=== PATIENT | male | born 1970 | race Hispanic/Latino ===

== ENCOUNTER 2019-03-28 07:54 | Emergency (ER) | payer BC ==
[2019-03-28] MEDS ORDERED: ASPIRIN PO ONE (08:01)
--- NOTE | 2019-03-28 08:43 | XRay Report ---
CHEST 1 VIEW 0825 INDICATION / CLINICAL INFORMATION: Chest Pain. COMPARISON: None available. FINDINGS: SUPPORT DEVICES: None HEART / MEDIASTINUM: No significant abnormality. LUNGS / PLEURA: No significant pulmonary or pleural abnormality. No pneumothorax. ADDITIONAL FINDINGS: No significant additional findings. IMPRESSION: No significant acute abnormality Signer Name: Alok Parsons MD Signed: 03/28/2019 8:38 AM Workstation Name: [id number]
[2019-03-28 08:52] LABS: Basophils % (Auto) 0.3 % (0.0-1.8); Eosinophils # (Auto) 0.2 K/mm3 (0.0-0.4); Hematocrit 45.4 % (35.5-45.6); Hemoglobin 15.3 gm/dl (11.8-15.2); Lymphocytes # (Auto) 1.3 K/mm3 (1.2-5.4); Lymphocytes % (Auto) 15.5 % (13.4-35.0); Mean Corpuscular HGB Conc 34 % (32-34); Mean Corpuscular Volume 88 fl (84-94); Monocytes # (Auto) 0.7 K/mm3 (0.0-0.8); Monocytes % (Auto) 8.6 % (0.0-7.3); Platelet Count 240 K/mm3 (140-440); Red Blood Count 5.16 M/mm3 (3.65-5.03)
[2019-03-28 09:23] LABS: BUN/Creatinine Ratio 20; Blood Urea Nitrogen 16 mg/dL (9-20); Calcium 9.1 mg/dL (8.4-10.2); Hemolysis Index 13
[2019-03-28 09:29] LABS: Alanine Aminotransferase 17 units/L (7-56); Albumin 4.2 g/dL (3.9-5)
[2019-03-28 09:31] LABS: Bilirubin,Direct < 0.2 mg/dL (0-0.2)
[2019-03-28 09:35] LABS: Free T4 (Free Thyroxine) 1.2 ng/dL (0.76-1.46)
[2019-03-28 09:47] LABS: INR 1.03 (0.87-1.13)
[2019-03-28 09:48] LABS: Partial Thromboplastin Time 25.8 Sec. (24.2-36.6)
--- NOTE | 2019-03-28 10:41 | Emergency Department Report ---
ED Palpitations HPI - General Chief Complaint: Arrhythmia/Palpitations Stated Complaint: RAPID HEART BEAT/DEHYDRATED Time Seen by Provider: 03/28/19 08:42 Source: patient Mode of arrival: Ambulatory Limitations: No Limitations - History of Present Illness Initial Comments: 1-year-old male noted that he had an irregular heart rhythm today. This persisted for about one hour. He decided to come to the emergency department for evaluation. While he is waiting he experienced spontaneous cardioversion of atrial fibrillation. He denied shortness of breath or chest pain. He did admit to 3 "vodkas last night". He states he has not had thing like this before. 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 He states that he would prefer to be discharged if at all possible for follow-up in his home town. Complaint: palpitations -: Gradual, hour(s) Context: occured during rest Arrythmia History: other (none) Associated Symptoms: denies other symptoms - Related Data Allergies Allergy/AdvReac Type Severity Reaction Status Date / Time No Known Allergies Allergy Verified 03/28/19 08:01 ED Review of Systems ROS: Stated complaint: RAPID HEART BEAT/DEHYDRATED Other details as noted in HPI Constitutional: denies: chills, fever Eyes: denies: eye pain, eye discharge, vision change ENT: denies: ear pain, throat pain Respiratory: denies: cough, shortness of breath, wheezing Cardiovascular: palpitations. denies: chest pain Endocrine: no symptoms reported Gastrointestinal: denies: abdominal pain, nausea, diarrhea Genitourinary: denies: urgency, dysuria Musculoskeletal: denies: back pain, joint swelling, arthralgia Skin: denies: rash, lesions Neurological: denies: headache, weakness, paresthesias Psychiatric: denies: anxiety, depression Hematological/Lymphatic: denies: easy bleeding, easy bruising ED Past Medical Hx - Past Medical History Previous Medical History?: No - Surgical History Past Surgical History?: No - Social History Smoking Status: Never Smoker Substance Use Type: None ED Physical Exam - General Limitations: No Limitations General appearance: alert, in no apparent distress - Head Head exam: Present: atraumatic, normocephalic - Eye Eye exam: Present: normal appearance. Absent: scleral icterus - ENT ENT exam: Present: mucous membranes moist - Neck Neck exam: Present: normal inspection - Respiratory Respiratory exam: Present: normal lung sounds bilaterally. Absent: respiratory distress - Cardiovascular Cardiovascular Exam: Present: regular rate, normal rhythm. Absent: systolic murmur, diastolic murmur, rubs, gallop - GI/Abdominal GI/Abdominal exam: Present: soft, normal bowel sounds. Absent: distended, tenderness, guarding, rebound - Rectal Rectal exam: Present: deferred - Extremities Exam Extremities exam: Present: normal inspection - Back Exam Back exam: Present: normal inspection - Neurological Exam Neurological exam: Present: alert, oriented X3, CN II-XII intact. Absent: motor sensory deficit - Psychiatric Psychiatric exam: Present: normal affect, normal mood - Skin Skin exam: Present: warm, dry, intact, normal color. Absent: rash ED Course Vital Signs 03/28/19 03/28/19 03/28/19 07:59 08:08 08:34 Temperature 98 F Pulse Rate 18 L 87 Respiratory 18 18 16 Rate Blood Pressure 129/91 Blood Pressure 129/91 [Left] O2 Sat by Pulse 100 Oximetry 03/28/19 03/28/19 03/28/19 08:46 09:00 09:15 Temperature Pulse Rate 90 82 88 Respiratory 19 18 12 Rate Blood Pressure 129/87 126/80 125/77 Blood Pressure [Left] O2 Sat by Pulse 97 97 97 Oximetry 03/28/19 03/28/19 03/28/19 09:30 09:45 10:00 Temperature Pulse Rate 86 79 79 Respiratory 22 13 14 Rate Blood Pressure 119/79 127/78 124/79 Blood Pressure [Left] O2 Sat by Pulse 96 97 97 Oximetry 03/28/19 03/28/19 03/28/19 10:15 10:30 10:45 Temperature Pulse Rate 80 92 H 84 Respiratory 16 18 13 Rate Blood Pressure 122/76 124/80 133/80 Blood Pressure [Left] O2 Sat by Pulse 97 98 98 Oximetry 03/28/19 03/28/19 03/28/19 11:00 11:15 11:30 Temperature Pulse Rate 85 81 79 Respiratory 15 15 19 Rate Blood Pressure 130/77 123/78 125/77 Blood Pressure [Left] O2 Sat by Pulse 97 99 97 Oximetry 03/28/19 11:45 Temperature Pulse Rate 82 Respiratory 17 Rate Blood Pressure 137/80 Blood Pressure [Left] O2 Sat by Pulse 96 Oximetry - Reevaluation(s) Reevaluation #1: Patient remains in normal sinus rhythm. He states he has a friend who is a national recruiter in [place]. He states he will see him at his earliest opportunity. He is not interested in admission or further workup at this time. He is asymptomatic. I have explained to him that he will need anticoagulants if atrial fibrillation persists as well as further workup in either case. He is going to follow-up at home in [place]. He understands alcohol restriction and will restart his aspirin which she stopped taking for the last 2 weeks. 03/28/19 11:57 ED Medical Decision Making - Lab Data Result diagrams: 03/28/19 08:31 03/28/19 08:31 Laboratory Results - last 24 hr 03/28/19 03/28/19 03/28/19 08:31 08:31 08:52 WBC 8.1 RBC 5.16 H Hgb 15.3 H Hct 45.4 MCV 88 MCH 30 MCHC 34 RDW 14.0 Plt Count 240 Lymph % (Auto) 15.5 [place] % (Auto) 8.6 H Eos % (Auto) 2.0 Baso % (Auto) 0.3 Lymph # 1.3 [place] # 0.7 Eos # 0.2 Baso # 0.0 Seg Neutrophils % 73.6 H Seg Neutrophils # 5.9 PT 13.2 INR 1.03 APTT 25.8 Sodium 145 Potassium 3.9 Chloride 105.3 Carbon Dioxide 26 Anion Gap 18 BUN 16 Creatinine 0.8 Estimated GFR > 60 BUN/Creatinine Ratio 20 Glucose 109 H Calcium 9.1 Magnesium Total Bilirubin Direct Bilirubin AST ALT Alkaline Phosphatase Troponin T 0.018 NT-Pro-B Natriuret Pep Total Protein Albumin Albumin/Globulin Ratio TSH Free T4 03/28/19 03/28/19 08:52 08:52 WBC RBC Hgb Hct MCV MCH MCHC RDW Plt Count Lymph % (Auto) [place] % (Auto) Eos % (Auto) Baso % (Auto) Lymph # [place] # Eos # Baso # Seg Neutrophils % Seg Neutrophils # PT INR APTT Sodium Potassium Chloride Carbon Dioxide Anion Gap BUN Creatinine Estimated GFR BUN/Creatinine Ratio Glucose Calcium Magnesium 1.80 Total Bilirubin 0.40 Direct Bilirubin < 0.2 AST 18 ALT 17 Alkaline Phosphatase 80 Troponin T NT-Pro-B Natriuret Pep 248.5 Total Protein 6.8 Albumin 4.2 Albumin/Globulin Ratio 1.6 TSH 2.230 Free T4 1.20 - EKG Data -: EKG Interpreted by Tn - EKG Data Interpretation: other (initial EKG showed atrial fibrillation with RVR at a rate of 133. There were anterolateral C depressions noted. Post cardioversion EKG is pending.) Repeat EKG shows normal sinus rhythm and normal repolarization 03/28/19 11:58 - Radiology Data Radiology results: report reviewed (NAP), image reviewed Critical care attestation.: If time is entered above; I have spent that time in minutes in the direct care of this critically ill patient, excluding procedure time. ED Disposition Clinical Impression: Paroxysmal atrial fibrillation Disposition: DC-01 TO HOME OR SELFCARE Is pt being admited?: No Does the pt Need Aspirin: No Condition: Stable Additional Instructions: Seek emergency care should this abnormal heart rhythm (atrial fibrillation) recur. Take an aspirin a day. Avoid alcohol. Follow up with the national recruiter in [place]. Referrals: usual, national recruiter [Other] - 2-3 Days Time of Disposition: 11:59
[2019-03-28 11:56] VITALS: BP 137/80
== END 2019-03-28 12:20 | disposition home or self-care (01) ==
LOC: ED 07:54
DX: I48.0 Paroxysmal atrial fibrillation (principal)
CPT/HCPCS: 36415; 71045; 80048; 80076; 83735; 83880; 84439; 84443; 84484; 85025; 85610; 85730; 93005; 93010; 99284